=== PATIENT | female | born 1930 | race Caucasian/White ===

== ENCOUNTER → 2018-02-05 | Outpatient (CLI) | payer MEDICARE ==
[~2018-02-05] MED LIST: ACET-2743 PO; AMLO10TA2 PO; ASPI-1012 PO; ATEN50TA PO; CELE200 PO; CETI10TA57 PO; CYCL30DR OU; ESOM40CA PO; ESTR10TA VG; FLUT16H NASAL; HYDR12.530 PO; OLOP2.5D OU; PREG25 PO; PREM3 PO; ROSU5TAB PO; SOLI10TA PO; TRAM50TA4 PO
== END | disposition home or self-care (01) ==
LOC: OIH 10:47
PROVIDERS: ATTEND Family Medicine
DX: M19.012 Primary osteoarthritis, left shoulder (principal)
CPT/HCPCS: 73030

== ENCOUNTER → 2018-11-11 | Outpatient (CLI) | payer MEDICARE ==
[~2018-11-11] MED LIST changes: -ACET-2743 PO; -AMLO10TA2 PO; +AMLO10TA7 PO; -ASPI-1012 PO; +CALC-1198 PO; -CELE200 PO; +CETI10CA5 PO; -CETI10TA57 PO; +CYCL30DR OP; -CYCL30DR OU; -ESOM40CA PO; -ESTR10TA VG; -FLUT16H NASAL; -HYDR12.530 PO; +MIRA25TA PO; -OLOP2.5D OU; +PANT40TA PO; -PREG25 PO; -SOLI10TA PO; -TRAM50TA4 PO
== END | disposition home or self-care (01) ==
LOC: RAH 08:46
PROVIDERS: ATTEND Family Medicine
DX: K80.20 Calculus of gallbladder without cholecystitis without obstruction (principal)
CPT/HCPCS: 76700

== ENCOUNTER → 2019-02-01 | Outpatient (CLI) | payer MEDICARE | END | disposition home or self-care (01) | LOC: RAH 08:24 | PROVIDERS: ATTEND Family Medicine | DX: M16.11 Unilateral primary osteoarthritis, right hip (principal) | CPT/HCPCS: 73502 ==